=== PATIENT | male | born 1970 | race Two or more races ===

== ENCOUNTER 2018-05-30 18:23 | Inpatient (IN) | payer BC ==
[~2018-05-30] VITALS: Ht 185.4 cm; Wt 136.1 kg
[2018-05-30 18:33] VITALS: Ht 185.4 cm; Wt 136.1 kg
[2018-05-30 20:51] LABS: BASOPHIL % 0.1 % (0-2); PLATELET COUNT 187 x10^3mcL (130-400); RED CELL DISTRIBUTION WIDTH 14.6 % (11.5-14.5)
[2018-05-30 21:12] LABS: ALBUMIN 4.5 g/dL (3.4-5.0); BILIRUBIN TOTAL 0.43 mg/dL (0.20-1.00); CALCIUM 9.5 mg/dL (8.5-10.1); CARBON DIOXIDE 27.8 mmol/L (21-32); CREATININE SERUM 1.6 mg/dL (0.7-1.3)
[2018-05-30 21:18] LABS: TOTAL PROTEIN, SERUM 8.3 g/dL (6.4-8.2)
[2018-05-30 21:21] LABS: POTASSIUM SERUM 2.9 mmol/L (3.5-5.1)
[2018-05-30 21:40] LABS: microscopic required? NO
[2018-05-30 21:53] LABS: urine erythrocyte NEGATIVE (NEGATIVE)
[2018-05-30] MEDS ORDERED: PEPCID20 MG PO (22:00)
[2018-05-30] MEDS ORDERED: NORCO1 TA2 PO (22:02)
[2018-05-30 22:43] LABS: FREE T4 1.08 ng/dL (0.76-1.46); T4(THYROXINE) 8.9 ug/dL (4.7-13.3)
[2018-05-30 22:50] LABS: PHOSPHOROUS 3.7 mg/dL (2.5-4.9)
[2018-05-30 22:53] LABS: CHOLESTEROL/HDL RATIO 6.6
[2018-05-30 23:21] LABS: AMPHETAMINE QUAL UR NONE DETECTED (See below)
[2018-05-30 23:50] VITALS: BP 152/104
[2018-05-31 00:52] VITALS: BP 146/95
[2018-05-31 01:08] LABS: T3 TOTAL 1.12 ng/mL
[2018-05-31 05:40] VITALS: BP 108/66
[2018-05-31 05:49] LABS: PLATELET COUNT 172 x10^3mcL (130-400)
[2018-05-31 05:52] LABS: CALCIUM 8.9 mg/dL (8.5-10.1); CARBON DIOXIDE 25.8 mmol/L (21-32); CREATININE SERUM 1.7 mg/dL (0.7-1.3); MAGNESIUM 2.2 mg/dL (1.8-2.4); POTASSIUM SERUM 3.9 mmol/L (3.5-5.1)
[2018-05-31 05:56] LABS: BASOPHIL % 0 % (0-2); RED CELL DISTRIBUTION WIDTH 14.6 % (11.5-14.5)
[2018-05-31 09:10] VITALS: BP 117/79
[2018-05-31 13:22] VITALS: BP 120/77
[2018-05-31 17:36] VITALS: BP 136/83
[2018-05-31 20:58] VITALS: BP 127/82
[2018-06-01 04:54] VITALS: BP 134/78
[2018-06-01 07:48] LABS: PLATELET COUNT 141 x10^3mcL (130-400); RED CELL DISTRIBUTION WIDTH 14.5 % (11.5-14.5)
[2018-06-01 07:49] LABS: BASOPHIL % 0 % (0-2)
[2018-06-01 07:53] LABS: CALCIUM 8.1 mg/dL (8.5-10.1); CHLORIDE SERUM 101 mmol/L (98-107); CREATININE SERUM 1.3 mg/dL (0.7-1.3); GFR1 > 60 mL/min; POTASSIUM SERUM 3.7 mmol/L (3.5-5.1)
[2018-06-01 08:05] LABS: GLUCOSE SERUM 117 mg/dL (74-106); SODIUM SERUM 137 mmol/L (136-145)
[2018-06-01 09:35] VITALS: BP 106/64
[2018-06-01 13:17] VITALS: BP 127/80
[2018-06-01 17:33] VITALS: BP 146/83
[2018-06-01 20:35] VITALS: BP 116/62
[2018-06-02 05:23] VITALS: BP 128/63
[2018-06-02 06:38] LABS: CARBON DIOXIDE 29.5 mmol/L (21-32); CHLORIDE SERUM 103 mmol/L (98-107); CREATININE SERUM 1.3 mg/dL (0.7-1.3); GFR1 > 60 mL/min; GLUCOSE SERUM 98 mg/dL (74-106); MAGNESIUM 2.3 mg/dL (1.8-2.4); PHOSPHOROUS 2.8 mg/dL (2.5-4.9); POTASSIUM SERUM 3.7 mmol/L (3.5-5.1); SODIUM SERUM 139 mmol/L (136-145)
[2018-06-02 06:45] LABS: BASOPHIL % 0.3 % (0-2); PLATELET COUNT 141 x10^3mcL (130-400); RED CELL DISTRIBUTION WIDTH 13.6 % (11.5-14.5)
[2018-06-02 08:54] VITALS: BP 138/83
[2018-06-02 12:54] VITALS: BP 152/95
[2018-06-02 17:41] VITALS: BP 140/88
[2018-06-02 20:58] VITALS: BP 133/77
[2018-06-03 04:44] VITALS: BP 135/79
[2018-06-03 09:14] VITALS: BP 111/60
[2018-06-03 11:42] VITALS: BP 132/86
[2018-06-03 16:32] VITALS: BP 134/85
[2018-06-03 21:25] VITALS: BP 133/86
[2018-06-04 05:48] VITALS: BP 113/77
[2018-06-04 08:55] VITALS: BP 121/71
[2018-06-04 08:55] LABS: BASOPHIL % 0.3 % (0-2); PLATELET COUNT 166 x10^3mcL (130-400)
[2018-06-04 08:56] LABS: CALCIUM 8.5 mg/dL (8.5-10.1); CREATININE SERUM 1.4 mg/dL (0.7-1.3); POTASSIUM SERUM 3.7 mmol/L (3.5-5.1)
[2018-06-04 08:57] LABS: RED CELL DISTRIBUTION WIDTH 14.7 % (11.5-14.5)
[2018-06-04] MEDS ORDERED: ECO325 PO (13:45)
[2018-06-04] MEDS ORDERED: LEVOFLOXACIN750 M1 PO (13:47)
[2018-06-04] MEDS ORDERED: FLA500 PO (13:47)
[2018-06-04] MEDS ORDERED: ATORVASTATIN CA40 M1 PO (13:49)
[2018-06-04 14:08] VITALS: BP 121/71
[2018-06-04 14:19] VITALS: BP 123/83
== END 2018-06-04 15:51 | disposition home or self-care (01) | DRG 871 ==
LOC: ED 18:23 → DU 21:54
PROVIDERS: Emergency Medicine; Family Medicine; Internal Medicine; Internal Medicine Gastroenterology; Radiology Diagnostic Radiology
PROC: 0DBL8ZX Excision of Transverse Colon, Via Natural or Artificial Opening Endoscopic, Diagnostic (ICD-10-PCS; 2018-06-02)
PROC: 0DBN8ZX Excision of Sigmoid Colon, Via Natural or Artificial Opening Endoscopic, Diagnostic (ICD-10-PCS; 2018-06-02)
PROC: 0DBF8ZX Excision of Right Large Intestine, Via Natural or Artificial Opening Endoscopic, Diagnostic (ICD-10-PCS; 2018-06-02)
PROC: 0DBG8ZX Excision of Left Large Intestine, Via Natural or Artificial Opening Endoscopic, Diagnostic (ICD-10-PCS; 2018-06-02)
PROC: 0DBM8ZX Excision of Descending Colon, Via Natural or Artificial Opening Endoscopic, Diagnostic (ICD-10-PCS; principal; 2018-06-02 14:30)
DX: A41.9 Sepsis, unspecified organism (principal); N17.0 Acute kidney failure with tubular necrosis; K55.9 Vascular disorder of intestine, unspecified; Z68.41 Body mass index [BMI] 40.0-44.9, adult; R65.10 Systemic inflammatory response syndrome (SIRS) of non-infectious origin without acute organ dysfunction; K59.00 Constipation, unspecified; I10 Essential (primary) hypertension; E78.00 Pure hypercholesterolemia, unspecified; E87.6 Hypokalemia; R73.9 Hyperglycemia, unspecified; E66.9 Obesity, unspecified; R33.9 Retention of urine, unspecified; E78.5 Hyperlipidemia, unspecified; R73.03 Prediabetes; E03.9 Hypothyroidism, unspecified; Z87.891 Personal history of nicotine dependence; Z82.49 Family history of ischemic heart disease and other diseases of the circulatory system
CPT/HCPCS: 45378; 83880; 84439; J1200; J1610; J1885; J1956; J2250; J2270; J2310; J2405; J2765; J3010; J3475; J3480; J3490; J7030; Q0092; Q9967